=== PATIENT | male | born 1955 | race Caucasian/White ===

== ENCOUNTER → 2021-03-03 09:39 | Outpatient (BNVA) | payer OTHER, SELFPAY | PROVIDERS: Family Provider Family Medicine; PCP Family Medicine | DX: Z20.822 Contact with and (suspected) exposure to COVID-19 (principal) | CPT/HCPCS: 87635 ==

== ENCOUNTER 2021-03-09 08:24 | Day surgery (SDC) | payer OTHER, SELFPAY ==
[2021-03-07 08:50] VITALS: BMI 43.2
--- NOTE | 2021-03-09 08:58 | ANES.PREANE2 ---
Pre-Anesthetic Assessment Pre-Anesthetic Assessment: Height/Weight: Height 1.83 m Weight 144.696 kg Proposed Procedure: Operation Date: 03/09/21 10:00 Proposed Procedures p Colonoscopy 13709 k59.00 r19.4(Not Applicable) - Jovi Du MD Was Beta Jn taken within 24 hours: N/A Was Clonidine taken within 24 hours: N/A Social: Social History: No alcohol and No tobacco Exam: Pre-Anes Outpt Exam: alert, oriented x 3, clear to auscultation bilaterally and regular rate & rhythm Airway: Submandibular: WNL Cervical ROM: WNL MP: 2 Dentition: False CV/HEM: CV/HEM: DVT Metabolic: Metabolic: DM, Morbid obesity and Thyroid Anesthetic Plan: ASA status: 3 Anesthesia: MAC Risk of > 500 ml blood loss (7ml/kg in children): No PFSH Anesthesia PFSH: Family History Other CAD (coronary artery disease) Cancer Hypertension Lung disease Stroke Denies family history of Diabetes Dementia Social History Smoking and tobacco status: never smoked Second hand smoke exposure: No Alcohol intake: never Lives independently: Yes Data Anesthesia Cardiac Studies: No Data to Display
[2021-03-09 09:10] VITALS: BP 161/87; PULSE 77; RESP 18; TEMP 36.6; O2SAT 97
[2021-03-09] MEDS: sodium chloride 0.9% 1,000 ML 30 ML IV (09:26)
--- NOTE | 2021-03-09 09:44 | P.HP_ITS ---
Same Day Surgery H&P Indication for Procedure/HPI DATE OF PROCEDURE: March 09, 2021 CHIEF COMPLAINT/INDICATIONFOR SURGICAL PROCEDURE: Screening colonoscopy PREOP DIAGNOSIS: Occult blood in stool PLANNED PROCEDRUE: Operation Date: 03/09/21 10:00 Proposed Procedures p Colonoscopy 56814 k59.00 r19.4(Not Applicable) - Jovi Du MD This is a pleasant 65 years old gentleman with history of occult blood in stool, never had a colonoscopy before and denies history of colon cancer. He had patient reports that he has history of constipation Interim history 03/09/2021 Patient comes today for screening colonoscopy ROS All systems have been reviewed negative except as per the above or per problem list Medications/Allergies* Home Medications Medication Instructions Recorded Confirmed Type levothyroxine 175 mcg capsule 175 mcg PO DAILY 01/30/21 03/09/21 History metformin 500 mg tablet 500 mg PO DAILY 01/30/21 03/09/21 History warfarin 6 mg tablet 8 mg PO DAILY tab 01/30/21 03/09/21 History Allergies/Adverse Reactions Allergy/AdvReac Type Severity Reaction Status Date / Time lidocaine Allergy Severe hives Verified 03/09/21 09:45 penicillin G Allergy Severe unknown Verified 03/09/21 09:45 Current Medications: Generic Name Dose Route Start Last Admin Trade Name Freq PRN Reason Stop Dose Admin Sodium Chloride 1,000 mls @ 30 mls/hr 03/09/21 09:15 03/09/21 09:26 Sodium Chloride 0.9% IV 03/10/21 09:14 30 mls/hr .Q24H LEXIE Administration Pertinent History/Comorbid Conditions* Family History (Updated 01/30/21 @ 11:37 by Cristina Busby) CAD (coronary artery disease) Lung disease Cancer Hypertension Stroke Denies family history of Diabetes Dementia Social History Smoking and tobacco status: never smoked Second hand smoke exposure: No Alcohol intake: never Lives independently: Yes Pertinent Exam Findings alert, oriented x 3, clear to auscultation bilaterally and procedure specific exam findings (Abdominal examination nontender nondistended soft) Recommendations Surgery/Procedure today (Screening colonoscopy) Other Plans: Plan of care; After thorough history and physical examination and reviewing the chart, plan to perform screening colonoscopy. I discussed with the patient in details the risks,benefits,alternatives and indications.The risk of aspiration, bleeding, soft tissue injury, perforation of the colon and other potential concomitant complications were explained to the patient in details,also the potential need for Laproscoy/Laparotomy to repair any related complications including but not limited to colectomy and or Closotomy.The patient understood this well and did agree to proceed. Rationale was carefully and clearly discussed with the patient.Appropriate informed consent have been reviewed and signed All questions have been answered and all concerns have been addressed to patient's satisfaction. Verbal and written Instructions were given to the patient for colonoscopy prep Coding Level of Care Code Acute Burnisher And Bumper for Jose Etseban
[2021-03-09 10:36] VITALS: BP 156/71; PULSE 67; RESP 18; TEMP 36.6; O2SAT 96
[2021-03-09 13:45] LABS: Glucose Point of Care 126 mg/dL (70-110)
--- NOTE | 2021-03-09 14:56 | ANE.PACU2 ---
Inpatient post-anesthesia follow up: Airway intact: Yes Vital signs: Temperature 97.8 F Pulse Rate 67 Respiratory Rate 18 Blood Pressure 156/71 Pulse Oximetry 96 Oxygen Delivery Me thod Room Air Oxygen Flow Rate Fraction of Inspir ed Oxygen Hydration adequate: No Nausea and vomiting: Yes Pain level: 1 Mental status: Baseline
== END 2021-03-09 10:57 | disposition home or self-care (01) ==
PROVIDERS: PCP Family Medicine; Visit Provider Surgery
PROC: 0DJD8ZZ Inspection of Lower Intestinal Tract, Via Natural or Artificial Opening Endoscopic (ICD-10-PCS; CPT 45378; principal; 2021-03-09 10:00)
DX: Z12.11 Encounter for screening for malignant neoplasm of colon (principal); D12.2 Benign neoplasm of ascending colon; D12.5 Benign neoplasm of sigmoid colon; Z79.01 Long term (current) use of anticoagulants; Z79.84 Long term (current) use of oral hypoglycemic drugs; Z82.49 Family history of ischemic heart disease and other diseases of the circulatory system; Z82.3 Family history of stroke; Z86.718 Personal history of other venous thrombosis and embolism; E11.9 Type 2 diabetes mellitus without complications; E66.01 Morbid (severe) obesity due to excess calories; Z68.41 Body mass index [BMI] 40.0-44.9, adult
CPT/HCPCS: 36416; 45380; 45385; 82962; 88305; 96360; J2704; J7030

== ENCOUNTER 2021-08-21 18:08 | Emergency (ER) | payer MEDICARE, SELFPAY ==
[2021-08-21 18:16] VITALS: BP 138/83; PULSE 97; RESP 25; TEMP 37.1; O2SAT 88; BMI 40.4
--- NOTE | 2021-08-21 19:39 | ECG_ITS ---
[facility] Test Date: 2021-08-21 Pat Name: Sanjiv Ramirez Department: Room: Gender: Male Teachers' Assistant: : 1955 Requested By: Mike Swanson Order Number: [id number] Veloz MD: Talisha Larose M.D. Measurements Intervals [place] Rate: 90 P: 31 [place]: 191 QRS: -19 QRSD: 109 T: -3 QT: 358 QTc: 439 Interpretive Statements SINUS RHYTHM MODERATE VOLTAGE CRITERIA FOR LVH, CONSIDER NORMAL VARIANT [MEETS CRITERIA IN ONE OF: R(aVL), S(V1), R(V5), R(V5/V6)+S(V1)] No previous ECG available for comparison Electronically Signed On 08-22-2021 4:58:46 AGRICULTURAL SALES REPRESENTATIVE by Talisha Larose M.D. [email or web address]. [email or web address].[employer]/store/OM/[id number]
--- NOTE | 2021-08-21 19:39 | XRR_ITS ---
PROCEDURE INFORMATION: Exam: XR Chest Exam date and time: 08/21/2021 7:39 PM Age: 66 years old Clinical indication: Shortness of breath; Additional info: SOB, covid + TECHNIQUE: Imaging protocol: XR of the chest. Views: 1 view. COMPARISON: CR Chest 2 views* [id number] 10/15/2017 10:33 AM FINDINGS: Lungs: Patchy bilateral left greater than right airspace infiltrates. Pleural spaces: Unremarkable. No pleural effusion. No pneumothorax. Heart/Mediastinum: Mild cardiomegaly. Bones/joints: Unremarkable. XR/XR chest 1V portable [id number] IMPRESSION: 1. Patchy bilateral left greater than right airspace infiltrates. 2. Mild cardiomegaly.
--- NOTE | 2021-08-21 19:39 | ECG_ITS ---
[facility] Test Date: 2021-08-21 Pat Name: Sanjiv Ramirez Department: Room: Gender: Male Security Guard: : 1955 Requested By: Jesus Diaz Order Number: [id number] Veloz MD: Talisha Larose M.D. Measurements Intervals [place] Rate: 91 P: 31 [place]: 189 QRS: -20 QRSD: 111 T: -9 QT: 347 QTc: 427 Interpretive Statements SINUS RHYTHM INCOMPLETE RIGHT BUNDLE BRANCH BLOCK [90+ ms QRS DURATION, TERMINAL R IN V1/V2, 40+ ms S IN I/aVL/V4/V5/V6] MODERATE VOLTAGE CRITERIA FOR LVH, CONSIDER NORMAL VARIANT [MEETS CRITERIA IN ONE OF: R(aVL), S(V1), R(V5), R(V5/V6)+S(V1)] Compared to ECG 08/21/2021 20:21:11 Incomplete right bundle-branch block now present Electronically Signed On 08-22-2021 4:58:35 BIT AND SHANK DEPARTMENT SUPERVISOR by Talisha Larose M.D. [email or web address].[email or web address].[employer]/store/[id number]
--- NOTE | 2021-08-21 19:50 | W.ED.SOB ---
HPI - SOB/Dyspnea General: Chief Complaint: Shortness of Breath/Dyspnea Stated Complaint: O2 Levels Low Time Seen by Provider: 08/21/21 19:50 History of Present Illness: HPI Narrative: Mr. Garcia is a 66-year-old gentleman with significant past medical history of obesity, hypothyroidism, history of DVT on chronic anticoagulation who presents to the emergency department due to low oxygen levels. Symptom onset was approximately 1 and half to 2 weeks ago. He endorses generalized malaise, decreased p.o. intake, weakness. He reports approximately 20 pound weight loss due to poor p.o. intake. Symptoms are moderate to severe in intensity and have been unrelenting. He denies specific shortness of breath however was noted to have low oxygen levels. He has not been vaccinated for Covid. He denies other specific focal infectious symptoms. Denies similar episodes in the past. No other specific changes in health, exacerbating, or relieving factors identified. Pertinent past history: DVT Onset (ago): week(s) Timing: constant and progressively worsening Severity: moderate Exacerbating factors: nothing Relieving factors: nothing Associated symptoms: Reports no associated symptoms Treatment prior to arrival: oxygen Review of Systems General: Reports: 10 or more systems reviewed and unremarkable except in HPI and below PFSH ED PFSH: Medical History Chronic anticoagulation Colon polyps DVT (deep venous thrombosis) Occult blood positive stool Surgical History No significant past surgical history Family History Other CAD (coronary artery disease) Cancer Hypertension Lung disease Stroke Denies family history of Diabetes Dementia Social History Second hand smoke exposure: No Alcohol intake: never Lives independently: Yes Physical Exam Const: COMMON NORMALS: alert GENERAL APPEARANCE: cooperative, well developed and ill appearing NUTRITIONAL APPEARANCE: obese HENMT: COMMON NORMALS: normocephalic and atraumatic HEAD & SCALP: normocephalic and atraumatic THROAT: posterior oropharynx normal Eye: COMMON NORMALS: conjunctivae normal CONJUNCTIVA: Yes conjunctivae normal SCLERA: sclerae normal Neck/C-Spine: COMMON NORMALS: supple GENERAL: Yes trachea midline Resp: EFFORT & INSPECTION: Yes able to speak in complete sentences, Yes tachypneic and Yes uses accessory muscles (When supplemental oxygen not present) Cardio: COMMON NORMALS: regular rate and regular rhythm RATE: regular rate RHYTHM: regular rhythm GI: COMMON NORMALS: Soft to palpation PALPATION: Yes Soft to palpation and No Tenderness to palpation present (GI) PERCUSSION: normal to percussion Extremity: GENERAL: Yes normal exam except as noted and No edema Neuro: COMMON NORMALS: moves all extremities SENSORIUM/ORIENTATION: Yes alert and No Orientation impaired Psych: COMMON NORMALS: mental status grossly normal and Normal thought process present THOUGHT PROCESS: Normal thought process present Course ED course: - Patient was seen and evaluated by me at bedside - Patient placed on cardiac monitors, IV access obtained - Initial evaluation notable for exam as above, new O2 req - symptom treatment ordered - Labs notable for hemoconcentration on hematologic panel. Chem panel with dehydration. ABG with hypoxemia. COVID +. procal negative. - Imaging notable for patchy infiltrate. Appears somewhat unimpressive compared to patient presentation. Given hx of DVT and relative acute worsening d dimer (can't be PERCed out) warranted. CTA negative for PE. - Upon serial reexamination after treatment the patient was somewhat improved - Based on patient history, evaluation, labs, and imaging as interpreted the most likely cause of the patient's condition is COVID 19 with hypoxemia and new oxygen requirement as well as dehydration. - Home O2 ordered. - The results of ED evaluation were discussed with the patient including prescriptions and/or symptomatic cares (if applicable) including appropriate and responsible use, follow-up plan, and return precautions. The patient verbalized understanding and felt safe for discharge. - Patient discharged in satisfactory condition. Note: Click bubbles or prepopulated louis in note writing are used for assistance with data collection and billing and are inherently more limited than narrative and other text portions of this note. Please use narrative for additional clinical history and defer to narrative/free test for any case of contradictory information. If information appears in only free text or click bubble it should be considered present or absent as reported. Please contact note journalists and other writers for clarifications of clinical information or contradictory information. MDM is a brief summary; contradictory or erroneous seeming information should be clarified, and full note should be referred to in cases of contradiction or lack of clarity. Vital Signs: Vital signs: Vital Signs Temperature 98.8 F 08/21/21 18:16 Pulse Rate 85 08/22/21 02:49 Respiratory Rate 21 H 08/22/21 02:49 Blood Pressure 120/79 08/22/21 02:49 Pulse Oximetry 90 08/22/21 00:54 MDM - SOB/Dyspnea MDM Narrative: Medical decision making narrative: 66 yo M with worsening SOB likely related to COVID-19. Dehydration on labs. CTA negative for PE. Improved with treatment. Will be D/Matthew with home O2. Medical Records: Attestation: I reviewed the patient's medical records. Lab Data: Attestation: I reviewed the patient's lab results. Labs: Lab Results 08/21/21 08/21/21 08/21/21 20:10 20:10 20:10 WBC 5.3 10^3/uL 10^3/ uL (4.0-10.0) RBC 6.28 10^6/uL H 10 ^6/uL (4.1-5.3) Hgb 18.1 g/dL H g/dL (11.7-16.6) Hct 54.9 % H % (42.0-52.0) MCV 87.4 fl fl (80-94) MCH 28.8 pg pg (28.0-34.0) MCHC 33.0 g/dL g/dL (30.0-36.0) RDW 13.5 % % (12.1-15.1) Plt Count 190 10^3/cmm 10^3 /cmm (130-400) MPV 10.8 fL H fL (7.4-10.4) Neut % (Auto) 73.1 % % Lymph % (Auto) 16.3 % % [place] % (Auto) 9.3 % % Eos % (Auto) 0.0 % % Baso % (Auto) 0.4 % % Neut # (Auto) 3.87 10^3/uL 10^3 /uL (1.8-7.7) Lymph # (Auto) 0.9 10^3/uL 10^3/ uL (0.8-4.8) [place] # (Auto) 0.5 10^3/uL 10^3/ uL (0.2-0.9) Eos # (Auto) 0.0 10^3/uL 10^3/ uL (0.0-0.8) Baso # (Auto) 0.0 10^3/uL 10^3/ uL (0.0-0.1) Nucleated RBC % (a uto) 0 % % Nucleated RBCs # 0.0 /100WBC /100W BC PT INR D-Dimer Specimen Type Sample Site ABG pH ABG pCO2 ABG pO2 ABG HCO3 ABG Base Excess Randall Test Hematocrit O2 Delivery Device O2 Liters/Min Marketing/Sales Person ID Sodium 132 mmol/L L mmol /L (136-145) Potassium 4.9 mmol/L mmol/L (3.5-5.1) Chloride 95 mmol/L L mmol/ L (98-107) Carbon Dioxide 19 mmol/L L mmol/ L (22-29) Anion Gap 22.9 H (5-19) BUN 27 mg/dL H mg/dL (8-23) Creatinine 1.9 mg/dL H mg/dL (0.7-1.2) GFR Calculation 35.8 mL/min L mL/ min (90-130) Glucose 157 mg/dL H mg/dL (65-115) Calculated Osmolal ity 282 mOsm/kg L mOs m/kg (285-295) Calcium 9.0 mg/dL mg/dL (8.5-10.5) Total Bilirubin 0.5 mg/dL mg/dL (0.15-1.2) AST 60 U/L H U/L (0-40) ALT 29 U/L U/L (0-41) Alkaline Phosphata se 91 IU/L IU/L (40-130) Troponin T Baselin e 28 ng/L H ng/L (0-15) Troponin T 120 Min sudhir Delta Troponin T C-Reactive Protein 64.0 mg/L H mg/L (0.0-4.9) NT-Pro-B Natriuret Pep 59 pg/mL pg/mL (0-125) Total Protein 7.7 g/dL g/dL (6.6-8.7) Albumin 3.5 g/dL g/dL (3.5-5.2) Globulin 4.2 g/dL g/dL (1.3-4.6) Procalcitonin 0.25 ng/mL ng/mL (0-0.5) TSH Coronavirus 229E ( PCR) SARS-CoV-2 (PCR) 01/10/22 01/10/22 01/10/22 20:10 20:10 20:10 WBC RBC Hgb Hct MCV MCH MCHC RDW Plt Count MPV Neut % (Auto) Lymph % (Auto) [place] % (Auto) Eos % (Auto) Baso % (Auto) Neut # (Auto) Lymph # (Auto) [place] # (Auto) Eos # (Auto) Baso # (Auto) Nucleated RBC % (a uto) Nucleated RBCs # PT 26.10 SECONDS H S ECONDS (12.1-14.9) INR 2.34 H (0.8-1.2) D-Dimer Specimen Type Sample Site ABG pH ABG pCO2 ABG pO2 ABG HCO3 ABG Base Excess Randall Test Hematocrit O2 Delivery Device O2 Liters/Min Marketing/Sales Person ID Sodium Potassium Chloride Carbon Dioxide Anion Gap BUN Creatinine GFR Calculation Glucose Calculated Osmolal ity Calcium Total Bilirubin AST ALT Alkaline Phosphata se Troponin T Baselin e Troponin T 120 Min sudhir Delta Troponin T C-Reactive Protein NT-Pro-B Natriuret Pep Total Protein Albumin Globulin Procalcitonin TSH 4.02 uIU/mL uIU/m L (0.27-4.20) Coronavirus 229E ( PCR) Not detected (NOT DETECT) SARS-CoV-2 (PCR) Detected A (NOT DETECT) 08/21/21 08/21/21 08/21/21 20:10 20:14 22:01 WBC RBC Hgb Hct MCV MCH MCHC RDW Plt Count MPV Neut % (Auto) Lymph % (Auto) [place] % (Auto) Eos % (Auto) Baso % (Auto) Neut # (Auto) Lymph # (Auto) [place] # (Auto) Eos # (Auto) Baso # (Auto) Nucleated RBC % (a uto) Nucleated RBCs # PT INR D-Dimer 1.71 ug/mIFEU H u g/mIFEU (0-0.59) Specimen Type Arterial Sample Site Radial, left ABG pH 7.40 (7.35-7.45) ABG pCO2 32.2 mmHg L mmHg (35-45) ABG pO2 56.2 mmHg L mmHg (80.0-100.0) ABG HCO3 20.0 mmol/L L mmo l/L (22-26) ABG Base Excess -3.5 mmol/L L mmo l/L (-2.0-2.0) Randall Test N/a Hematocrit 57.3 % H % (42-52) O2 Delivery Device Nc O2 Liters/Min 2.0 % % Marketing/Sales Person ID Nicer2 Sodium Potassium Chloride Carbon Dioxide Anion Gap BUN Creatinine GFR Calculation Glucose Calculated Osmolal ity Calcium Total Bilirubin AST ALT Alkaline Phosphata se Troponin T Baselin e Troponin T 120 Min sudhir 24.86 ng/L H ng/L (0-15) Delta Troponin T -3.14 ABS# L ABS# (0-10) C-Reactive Protein NT-Pro-B Natriuret Pep Total Protein Albumin Globulin Procalcitonin TSH Coronavirus 229E ( PCR) SARS-CoV-2 (PCR) EKG Data^: EKG 1: Attestation: I personally reviewed and interpreted this EKG as follows: EKG Interpretation Date: 08/21/21 EKG interpretation time: 20:27 Interpretation: 12 lead shows regular rhythm at rate of 91 CA 189 QRS 111 QTc 395 Left axis deviation Interpreation: sinus rhythm. interventricular conduction delay. EKG 2: Attestation: I personally reviewed and interpreted this EKG as follows: EKG Interpretation Date: 08/21/21 EKG interpretation time: 21:22 Interpretation: 12 lead shows regular rhythm at rate of 88 CA 192 QRS 113 QTc 405 Left axis deviation Interpreation: sinus rhythm. interventricular conduction delay. EKG 3: Attestation: I personally reviewed and interpreted this EKG as follows: EKG Interpretation Date: 08/22/21 EKG interpretation time: 01:35 Interpretation: 12 lead shows regular rhythm at rate of 83 CA 192 QRS 109 QTc 403 Left axis deviation Interpreation: sinus rhythm. interventricular conduction delay. Discharge Plan Discharge Patient Disposition: Home Clinical Impression: COVID-19, Hypoxemia, Dehydration Condition: Stable Prescriptions: No Action warfarin 6 mg tablet 8 mg PO DAILY RF: 0 Hold Instructions: Resume on 03/14/21. levothyroxine 175 mcg capsule 175 mcg PO DAILY RF: 0 metformin 500 mg tablet 500 mg PO DAILY RF: 0 lactulose 10 gram/15 mL solution 10 g PO TID 7 Days Qty: 315 RF: 0 Discharge Orders: Discharge ED (Routine); Ordered 08/22/21 Ordered By: Mike Swanson Other Ambulatory Orders: DME: Oxygen (Order) Location: None Selected Ordered By: Mike Swanson Referrals: Cm Barrientos MD [Primary Care Provider] - Discharge Diet: Usual diet Discharge Activity: Resume usual activity Patient Instructions: Dehydration (ED), Using Oxygen at Home (ED), COVID-19 (Coronavirus Disease 2019) (ED) Activity Restrictions/Additional Instructions: Thank you for visiting the emergency department. You were seen and evaluated for low oxygen levels in conjugation with generalized symptoms. You were found to have COVID-19. This likely explains your symptoms. Laboratory studies revealed that you are dehydrated. You will be sent home with home oxygen. Please follow-up with your primary care provider. Please return to the emergency department for worsening symptoms, oxygen levels less than 90% on supplemental oxygen, or anything else that you are concerned about a feel needs emergency department evaluation. Coding Level of Care Code ED Typesetter Apprentice for Jose Fwabran Exam Comprehensive
[2021-08-21 20:17] LABS: Basophils % 0.4 %; Hematocrit 54.9 % (42.0-52.0); Hemoglobin 18.1 g/dL (11.7-16.6); Lymphocytes # 0.9 10^3/uL (0.8-4.8); Lymphocytes % 16.3 %; Mean Corpuscular Hemoglobin 28.8 pg (28.0-34.0); Mean Corpuscular Volume 87.4 fl (80-94); Mean Platelet Volume 10.8 fL (7.4-10.4); Monocytes # 0.5 10^3/uL (0.2-0.9); Monocytes % 9.3 %; Neutrophils # 3.87 10^3/uL (1.8-7.7); Neutrophils % 73.1 %; Nucleated Red Blood Cells % 0 %; Platelet Count 190 10^3/cmm (130-400); Red Blood Count 6.28 10^6/uL (4.1-5.3); Red Cell Distribution Width 13.5 % (12.1-15.1); White Blood Count 5.3 10^3/uL (4.0-10.0)
[2021-08-21 20:26] LABS: ABG PCO2 32.2 mmHg (35-45); Arterial Blood Gas Hematocrit 57.3 % (42-52); Base Excess ABG -3.5 mmol/L (-2.0-2.0); Blood Gas Sample Site Radial, left; Blood Gas Sample Type Arterial; Oxygen Device NC; PO2 ABG 56.2 mmHg (80.0-100.0)
[2021-08-21 20:29] LABS: INR 2.34 (0.8-1.2)
[2021-08-21 20:36] LABS: Troponin(5th) Baseline 28 ng/L (0-15)
[2021-08-21 20:42] VITALS: PULSE 90; RESP 23; O2SAT 92
[2021-08-21] MEDS: sodium chloride 0.9% 1,000 ML 999 ML IV (20:45)
[2021-08-21 20:54] LABS: Thyroid Stimulating Hormone 4.02 uIU/mL (0.27-4.20)
[2021-08-21 20:55] LABS: Alanine Aminotransferase 29 U/L (0-41); Albumin Level 3.5 g/dL (3.5-5.2); Alkaline Phosphatase 91 IU/L (40-130); Anion Gap 22.9 (5-19); Aspartate Amino Transferase 60 U/L (0-40); Blood Urea Nitrogen 27 mg/dL (8-23); Carbon Dioxide 19 mmol/L (22-29); Chloride 95 mmol/L (98-107); Globulin 4.2 g/dL (1.3-4.6); Glomerular Filtration Rate 35.8 mL/min (90-130); Glucose 157 mg/dL (65-115); NT Pro B Type Natriuretic Pept 59 pg/mL (0-125); Osmolality Calculated 282 mOsm/kg (285-295); Potassium 4.9 mmol/L (3.5-5.1); Procalcitonin 0.25 ng/mL (0-0.5); Sodium 132 mmol/L (136-145); Total Bilirubin 0.5 mg/dL (0.15-1.2); Total Protein 7.7 g/dL (6.6-8.7)
--- NOTE | 2021-08-21 21:39 | ECG_ITS ---
[facility] Test Date: 2021-08-21 Pat Name: Sanjiv Ramirez Department: Room: Gender: Male Cyber Incident Responder: : 1955 Requested By: Jesus Diaz Order Number: [id number] Veloz MD: Talisha Larose M.D. Measurements Intervals [place] Rate: 88 P: 30 [place]: 192 QRS: -24 QRSD: 113 T: -5 QT: 359 QTc: 435 Interpretive Statements SINUS RHYTHM BORDERLINE LEFT AXIS DEVIATION [QRS AXIS < -20] MODERATE INTRAVENTRICULAR CONDUCTION DELAY [110+ ms QRS DURATION] MODERATE VOLTAGE CRITERIA FOR LVH, CONSIDER NORMAL VARIANT [MEETS CRITERIA IN ONE OF: R(aVL), S(V1), R(V5), R(V5/V6)+S(V1)] Compared to ECG 08/21/2021 20:22:21 Intraventricular conduction delay now present Incomplete right bundle-branch block no longer present Electronically Signed On 08-22-2021 5:10:26 MOBILE HEALTH VEHICLE OPERATOR by Talisha Larose M.D. [email or web address] [facility].[email or web address]/[id number]
--- NOTE | 2021-08-21 21:39 | ECG_ITS ---
[facility] Test Date: 2021-08-21 Pat Name: Sanjiv Ramirez Department: Room: Gender: Male Aviation Safety Officer: : 1955 Requested By: Mike Swanson Order Number: [id number] Roselia MD: Talisha Larose M.D. Measurements Intervals [place] Rate: 87 P: 26 [place]: 191 QRS: -21 QRSD: 110 T: -7 QT: 365 QTc: 441 Interpretive Statements SINUS RHYTHM BORDERLINE LEFT AXIS DEVIATION [QRS AXIS < -20] MODERATE VOLTAGE CRITERIA FOR LVH, CONSIDER NORMAL VARIANT [MEETS CRITERIA IN ONE OF: R(aVL), S(V1), R(V5), R(V5/V6)+S(V1)] Compared to ECG 08/21/2021 21:20:51 Intraventricular conduction delay no longer present Electronically Signed On 08-22-2021 5:10:09 CLIENT SERVICES ASSISTANT by Talisha Larose M.D. [email or web address] [email or web address] rehabilitation centerPretio Interactivemary [facility].[employer]/store/OM/[id number]
[2021-08-21 21:41] LABS: D Dimer 1.71 ug/mIFEU (0-0.59)
--- NOTE | 2021-08-21 21:44 | CTR_ITS ---
PROCEDURE INFORMATION: Exam: CTA Chest With Contrast Exam date and time: 08/21/2021 9:44 PM Age: 66 years old Clinical indication: Abnormal findings; Abnormal diagnostic tests; Elevated d-dimer; Shortness of breath; Additional info: D dimer elevated, hypoxemia TECHNIQUE: Imaging protocol: Computed tomographic angiography of the chest with contrast. 3D rendering (Not supervised by radiologist): MIP and/or 3D reconstructed images were created by the technologist. Radiation optimization: All CT scans at this facility use at least one of these dose optimization techniques: automated exposure control; mA and/or kV adjustment per patient size (includes targeted exams where dose is matched to clinical indication); or iterative reconstruction. Contrast material: VISI 320; Contrast volume: 66 ml; Contrast route: INTRAVENOUS (IV); COMPARISON: CR XR chest 1V portable [id number] 08/21/2021 8:17 PM RADIATION DOSE METRICS: Total DLP (mGy-cm): 549.35 FINDINGS: Pulmonary arteries: Normal. No pulmonary emboli. Aorta: Unremarkable. No aortic aneurysm. No aortic dissection. Lungs: Emphysematous changes. Patchy bilateral airspace infiltrates. Pleural spaces: Unremarkable. No pneumothorax. No pleural effusion. Heart: Unremarkable. No cardiomegaly. No pericardial effusion. Lymph nodes: Several prominent mediastinal lymph nodes measuring up to 10 mm, nonspecific. Liver: Hepatic steatosis Bones/joints: Unremarkable. No acute fracture. Soft tissues: Unremarkable. CT/CT angio chest PE protcl [id number] IMPRESSION: 1. Negative for pulmonary embolus. 2. Emphysematous changes. 3. Patchy bilateral airspace infiltrates. 4. Several prominent mediastinal lymph nodes measuring up to 10 mm, nonspecific. 5. Hepatic steatosis
[2021-08-21 21:57] LABS: Adenovirus Not Detected (NOT DETECT); Chlamydia Pneumoniae Not Detected (NOT DETECT); Coronavirus 229E,HKU1,NL63,OC4 Not Detected (NOT DETECT); Human Metapneumovirus Not Detected (NOT DETECT); Human Rhinovirus/Enterovirus Not Detected (NOT DETECT); Influenza A Not Detected (NOT DETECT); Influenza A H1 Not Detected (NOT DETECT); Influenza A H1-2009 Not Detected (NOT DETECT); Influenza A H3 Not Detected (NOT DETECT); Influenza B Not Detected (NOT DETECT); Mycoplasma Pneumoniae Not Detected (NOT DETECT); Parainfluenza Virus Type 1 Not Detected (NOT DETECT); Parainfluenza Virus Type 2 Not Detected (NOT DETECT); Parainfluenza Virus Type 3 Not Detected (NOT DETECT); Parainfluenza Virus Type 4 Not Detected (NOT DETECT); Respiratory Syncytial Virus A Not Detected (NOT DETECT); Respiratory Syncytial Virus B Not Detected (NOT DETECT); SARS-COV-2 Detected (NOT DETECT)
[2021-08-21 22:26] LABS: Troponin 5 2HR 24.86 ng/L (0-15)
[2021-08-21 22:35] LABS: Troponin 5 2HR Delta -3.14 ABS# (0-10)
[2021-08-21 23:00] VITALS: BP 118/78; PULSE 84; RESP 24; O2SAT 93
[2021-08-21] MEDS: iodixanol 320 mg/mL 100mL Btl IV (23:41)
[2021-08-22 00:02] VITALS: BP 118/78; PULSE 85; RESP 23; O2SAT 94
[2021-08-22 00:54] VITALS: O2SAT 86; O2SAT 90
--- NOTE | 2021-08-22 01:39 | ECG_ITS ---
[facility] Test Date: 2021-08-22 Pat Name: Sanjiv Ramirez Department: Room: Gender: Male Job Analysis Manager: : 1955 Requested By: Jesus Diaz Order Number: [id number] Roselia MD: Elvin Mendenhall M.D. Measurements Intervals [place] Rate: 83 P: 32 [place]: 192 QRS: -14 QRSD: 109 T: 8 QT: 363 QTc: 428 Interpretive Statements SINUS RHYTHM MODERATE VOLTAGE CRITERIA FOR LVH, CONSIDER NORMAL VARIANT [MEETS CRITERIA IN ONE OF: R(aVL), S(V1), R(V5), R(V5/V6)+S(V1)] Compared to ECG 08/21/2021 21:22:01 No significant changes Electronically Signed On 08-23-2021 19:59:47 PHYSICIAN IN PRIVATE PRACTICE by Elvin Mendenhall M.D. [email or web address]/[id number]
--- NOTE | 2021-08-22 01:39 | ECG_ITS ---
[facility] Test Date: 2021-08-22 Pat Name: Sanjiv Ramirez Department: Room: Gender: Male [employer]: : 1955 Requested By: Mike Swanson Order Number: [id number] Roselia MD: Elvin Mendenhall M.D. Measurements Intervals [place] Rate: 84 P: 29 [place]: 188 QRS: -15 QRSD: 110 T: -1 QT: 369 QTc: 438 Interpretive Statements SINUS RHYTHM MODERATE VOLTAGE CRITERIA FOR LVH, CONSIDER NORMAL VARIANT [MEETS CRITERIA IN ONE OF: R(aVL), S(V1), R(V5), R(V5/V6)+S(V1)] Compared to ECG 08/22/2021 01:29:07 No significant changes Electronically Signed On 08-23-2021 19:59:55 CRYPTOANALYSIS TEACHER by Elvin Mendenhall M.D. [id number]
[2021-08-22 02:49] VITALS: BP 120/79; PULSE 85; RESP 21
== END 2021-08-22 02:56 | disposition home or self-care (01) ==
PROVIDERS: Nurse Practitioner Family; Emergency Provider Emergency Medicine; PCP Family Medicine
DX: U07.1 COVID-19 (principal); R09.02 Hypoxemia; E86.0 Dehydration; Z79.01 Long term (current) use of anticoagulants; Z79.84 Long term (current) use of oral hypoglycemic drugs
CPT/HCPCS: 36415; 71045; 71275; 80053; 82803; 83880; 84145; 84443; 84484; 85025; 85378; 85610; 86140; 87635; 93005; 96360; 99284; J7030; Q9967